=== PATIENT | female | born 1980 | race Caucasian/White ===

== ENCOUNTER 2019-02-10 10:35 | Emergency (ER) | payer MEDICAID ==
[~2019-02-10] VITALS: Ht 170.2 cm; Wt 111.1 kg
[2019-02-10] MEDS ORDERED: traMADol HCL 50 MG TAB PO ONE (11:15)
[2019-02-10] MEDS ORDERED: CIPROFLOXACIN HCL 500 MG TAB PO ONE (11:15)
[2019-02-10 11:25] VITALS: BP 136/78
== END 2019-02-10 11:30 | disposition home or self-care (01) ==
LOC: ER 10:35
DX: N39.0 Urinary tract infection, site not specified (principal); J45.909 Unspecified asthma, uncomplicated; Z91.040 Latex allergy status
CPT/HCPCS: 81002; 81025